=== PATIENT | female | born 1980 | race Asian ===

== ENCOUNTER → 2017-04-08 | Outpatient (CLI) | payer OTHER ==
[~2017-04-08] MED LIST: LO LOESTRIN FE1 TAB PO; MASON NATURAL2000 IU PO; NORCO 325 MG-51 TAB PO; PROBIOTIC FORMU1 CAP PO; VITAMIN C500 MG PO; ZOFRAN ODT4 MG PO
== END ==
LOC: COL.RAD 08:00
DX: N83.292 Other ovarian cyst, left side (principal)
CPT/HCPCS: Q9967

== ENCOUNTER 2018-08-09 11:50 | Emergency (ER) | payer OTHER ==
[~2018-08-09] VITALS: Ht 152.4 cm; Wt 70.5 kg
[~2018-08-09 11:50] MED LIST changes: -NORCO 325 MG-51 TAB PO; -ZOFRAN ODT4 MG PO
[2018-08-09 11:53] VITALS: BP 127/69; TEMP 98
[2018-08-09 12:39] LABS: COLLECTION METHOD CLEAN CATCH
[2018-08-09 12:46] LABS: PH 8 (5-8); SQUAMOUS EPITHELIAL 0-2 /hpf; URINE APPEARANCE Clear; URINE BACTERIA None Seen /hpf; URINE BILIRUBIN Negative (NEGATIVE); URINE BLOOD Negative (NEGATIVE); URINE COLOR Straw; URINE GLUCOSE Negative (NEGATIVE); URINE KETONE Negative (NEGATIVE); URINE LEUKOCYTE ESTERASE Negative (NEGATIVE); URINE NITRATE Negative (NEGATIVE); URINE PROTEIN(semi-quant) Negative (NEGATIVE); URINE RBC 0-2 /hpf; URINE UROBILINOGEN Negative (NEGATIVE)
[2018-08-09 13:07] LABS: BASO % 0.6 % (0.0-2.0); EOS # 0.1 (0.0-0.7); EOS % 2.3 % (0-4.0); GRAN # 3.4 (1.4-6.5); HEMATOCRIT 39.9 % (37.0-47.0); HEMOGLOBIN 13.2 g/dl (12.5-16.0); LYMPH # 1.4 (1.2-3.4); LYMPH % 25.4 % (20.0-51.0); MEAN CELL VOLUME 95 fl (80.0-100.0); MEAN CORPUSCULAR HEMOGLOBIN 31 pg (27.0-31.0); MEAN CORPUSCULAR HGB CONC 33 g/dl (33.0-37.0); MEAN PLATELET VOLUME 9.9 fl (7.4-10.4); MONO # 0.5 (0.1-0.6); MONO % 8.5 % (1.7-9.3); PLATELET COUNT 196 K/mm3 (130-400); RED BLOOD COUNT 4.21 M/mm3 (4.10-5.30); REDCELL DISTRIBUTION WIDTH-CV 12.7 % (11.5-14.5)
[2018-08-09 13:17] LABS: ALANINE AMINOTRANSFERASE 26 U/L (9-52); ALBUMIN 3.8 gm/dL (3.5-5.0); ALKALINE PHOSPHATASE 52 U/L (50-136); ANION GAP 4 mmol/L (7-16); AST,SGOT 21 U/L (15-37); BILIRUBIN,TOTAL 0.3 mg/dL (0.0-1.0); BLOOD UREA NITROGEN 12 mg/dL (7-17); C-REACTIVE PROTEIN < 0.5 mg/dL (0.0-0.9); CALCIUM 8.7 mg/dL (8.4-10.2); CARBON DIOXIDE 28 mmol/L (22-30); CHLORIDE 107 mmol/L (98-107); CREATININE, serum 0.57 mg/dL (0.52-1.25); GLUCOSE 99 mg/dL (74-106); POTASSIUM 4.1 mmol/L (3.4-5.0); SODIUM 139 mmol/L (137-145); TOTAL PROTEIN 6.9 gm/dL (6.4-8.2)
[2018-08-09] MEDS ORDERED: NORCO 325 MG-51 TAB PO (13:46)
[2018-08-09] MEDS ORDERED: ZOFRAN ODT4 MG PO (15:48)
[2018-08-09 15:51] VITALS: PULSE 71
== END 2018-08-09 15:53 | disposition home or self-care (01) ==
LOC: COL.ER 11:50
PROVIDERS: Emergency Medicine
DX: R10.9 Unspecified abdominal pain (principal)
CPT/HCPCS: J1170; J1885; J2405; J7030; Q9967

== ENCOUNTER → 2022-06-14 | Outpatient (CLI) | payer BC ==
[~2022-06-14] MED LIST changes: +NORCO 325 MG-51 TAB PO; +ZOFRAN ODT4 MG PO
== END ==
LOC: MC.RAD 12:44
DX: Z12.31 Encounter for screening mammogram for malignant neoplasm of breast (principal); N64.89 Other specified disorders of breast

== ENCOUNTER → 2023-05-19 | Outpatient (CLI) | payer BC | LOC: MC.RAD 13:40 | DX: N60.01 Solitary cyst of right breast (principal) ==